=== PATIENT | female | born 1960 | race Two or more races ===

== ENCOUNTER → 2017-12-10 | Outpatient (REF) ==
[~2017-12-10] MED LIST: LEVI SUBQ; MELO-205 PO; METF-411 PO; OMEP-137 PO; OXYC-865 PO; SIMV-49 PO
--- NOTE | 2017-12-10 13:43 | EKG ---
FAC[place] [facility] [place]IENT NAME: ESHA CHILD : [id number] MR: [id number]: [id number] EXAM DATE: ORDERING PHYSICIAN: VINI GRANGER TECHNOLOGIST: TED Test Reason : SYNCOPE Blood Pressure : / mmHG Vent. Rate : 078 BPM Atrial Rate : 078 BPM P-R Int : 152 ms QRS Dur : 092 ms QT Int : 400 ms P-R-T Axes : 058 051 056 degrees QTc Int : 456 ms Normal sinus rhythm Normal ECG When compared with ECG of 27-FEB-2015 06:59, No significant change was found Confirmed by ELPIDIO MORFIN ([id number]) on 12/10/2017 2:49:01 PM Referred By: ELKIN Confirmed By:ELPIDIO MORFIN
--- NOTE | 2017-12-12 11:41 | RT HOLTER TEST ---
FACILITY: [facility] - [place] PATIENT NAME: ESHA CHILD : [id number] MR: [id number] V: [id number] EXAM DATE: ORDERING PHYSICIAN: VINI GRANGER TECHNOLOGIST: Davion Hook-up date: 2017-12-10 13:30:00 Duration: 24:46:00 Test Indications: Severe Syncope Medications: Metformin [id number] QRS complexes * Ventricular ectopics which represent % of total QRS comp. 1 Supraventricular ectopics which represent <1 % of total QRS comp. * Paced QRS complexes which represent % of total QRS comp. VENTRICULAR ECTOPY * Isolated * Bigeminal Cycles * Couplets * Runs * Beats in Runs * Beats LONGEST at * BPM at :: -- * Beats FASTEST at * BPM at :: -- SUPRAVENTRICULAR ECTOPY 1 Isolated 0 Couplets 0 Runs 0 Beats in Runs * Beats LONGEST at * BPM at :: -- * Beats FASTEST at * BPM at :: -- HEART RATES 42 MIN at 05:17:44 2017-12-11 80 AVG 130 MAX at 09:50:49 2017-12-11 LONGEST RR 1.504 secs at 05:17:43 2017-12-11 S-T LEVELS Channel 1 -12.800 mm MIN at 13:30:00 2017-12-10 -12.800 mm MAX at 13:30:00 2017-12-10 Channel 2 -12.800 mm MIN at 13:30:00 2017-12-10 -12.800 mm MAX at 13:30:00 2017-12-10 Very rare supraventricular ectopy. No couplets, triplets, or runs. No ventricular ectopy recorded. No pauses recorded. Sinus tachycardia was noted during usual waking hours and sinus bradycardia was recorded during usual sleeping hours. Confirmed by FELISA STRICKLAND ([id number]) on 12/12/2017 11:40:27 AM Referred By: VINI GRANGER Overread By: FELISA STRICKLAND
== END ==
LOC: RESP 13:00
PROVIDERS: ATTEND Nurse Practitioner
DX: R00.0 Tachycardia, unspecified (principal); R00.1 Bradycardia, unspecified; I49.1 Atrial premature depolarization
CPT/HCPCS: 93005; 93225; 93226